=== PATIENT | male | born 1960 | race Two or more races ===

== ENCOUNTER 2024-01-02 07:32 | Outpatient (CLI) | payer OTHER | END 2024-01-02 07:36 | disposition home or self-care (01) | LOC: NUCLEAR 07:32 | PROVIDERS: ATTEND Internal Medicine Cardiovascular Disease | DX: I25.119 Atherosclerotic heart disease of native coronary artery with unspecified angina pectoris (principal) | CPT/HCPCS: 78452; 93017; A9500; J0153 ==